=== PATIENT | male | born 1975 | race Two or more races ===

== ENCOUNTER 2017-01-05 16:47 | Inpatient (IN) | payer MEDICAID ==
[~2017-01-05] VITALS: Ht 170.2 cm; Wt 105.7 kg
[2017-01-05 16:55] VITALS: BP 182/147
[2017-01-05] MEDS ORDERED: NORVASC10 MG ORAL (17:09)
[2017-01-05 17:42] VITALS: BP 105/65
[2017-01-05 17:50] LABS: BASOPHILS % (AUTO) 1.5 % (0.0-2.0); EOSINOPHILS % (AUTO) 2.4 % (0.0-3.0); LYMPHOCYTES % (AUTO) 28.6 % (20.0-45.0); MEAN CORPUSCULAR HEMOGLOBIN 28.9 PG (27.0-31.0); MEAN CORPUSCULAR HGB CONC 33.7 G/DL (32.0-36.0); MEAN CORPUSCULAR VOLUME 86 FL (80-99); MEAN PLATELET VOLUME 7.9 FL (6.5-10.1); MONOCYTES % (AUTO) 7.7 % (1.0-10.0); NEUTROPHILS % (AUTO) 59.8 % (45.0-75.0); PLATELET COUNT 218 K/UL (150-450); RED CELL DISTRIBUTION WIDTH 12.1 % (11.6-14.8); WHITE BLOOD COUNT 10.1 K/UL (4.8-10.8)
[2017-01-05 18:00] LABS: TROPONIN I < 0.30 ng/mL (<=0.30)
[2017-01-05 18:04] LABS: ALBUMIN/GLOBULIN RATIO 1.4 (1.0-2.7); CALCIUM 11.4 mg/dL (8.6-10.2); CREATININE 1.4 mg/dL (0.7-1.2); GLOMERULAR FILTRATION RATE 55.6 mL/min (>60); POTASSIUM 3.9 mEQ/L (3.4-4.9); TOTAL PROTEIN 7.7 g/dL (6.6-8.7)
[2017-01-05 18:14] LABS: CKMB 1.7 ng/mL (< 6.7)
[2017-01-05] MEDS ORDERED: cloNIDine 0.2mg Tab ORAL ONE (20:45)
[2017-01-05] MEDS ORDERED: Miralax 17gm pkt ORAL PRN (22:00)
[2017-01-05] MEDS ORDERED: Nitroglycerin Subl 0.4mg tab (Bottle Of 25) SL PRN (22:00)
[2017-01-05] MEDS ORDERED: Carvedilol 6.25mg Tab ORAL ONE (22:00)
[2017-01-05] MEDS ORDERED: DuoNeb 0.5-3(2.5)mg/3ml neb HHN PRN (22:00)
[2017-01-05] MEDS ORDERED: Enalaprilat 2.5mg/2ml Inj IV PRN (22:00)
--- NOTE | 2017-01-05 22:05 | Emergency Room Report ---
History of Present Illness General Chief Complaint: Dyspnea/Respdistress Source: Patient Present Illness HPI Patient is a 39-year-old male who presented after increased difficulty breathing. Patient had gradual onset of symptoms. Patient was sent in by Dr. Trey Austin for further evaluation. The patient reported having some shortness of breath. Patient did have prior history of hypertension no recent been off medications. He had previously been taking Norvasc. The patient gradually worsening shortness of breath for the past few days. Patient noted to have markedly elevated blood pressure in the clinic. He had been having some increased abdominal distention. Allergies: Coded Allergies: No Known Allergies (Unverified , 01/05/17) Patient History Past Medical History: see triage record Reviewed Nursing Documentation: PMH: Agreed, PSxH: Agreed Nursing Documentation-PMH Past Medical History: No History, Except For Hx Hypertension: Yes Review of Systems All Other Systems: negative except mentioned in HPI Physical Exam Vital Signs Date Time Temp Pulse Resp B/P Pulse Ox O2 Delivery O2 Flow Rate FiO2 01/05/17 16:55 97.9 97 18 182/147 95 Room Air Sp02 EP Interpretation: reviewed, normal General Appearance: normal inspection, alert, GCS 15, non-toxic, mild distress Head: atraumatic ENT: normal ENT inspection, hearing grossly normal, normal voice Neck: normal inspection, full range of motion, supple, no bony tend Respiratory: normal inspection, no respiratory distress, no retraction, rales Cardiovascular #1: regular rate, rhythm, no edema Gastrointestinal: normal inspection, normal bowel sounds, non tender, soft, no guarding, no hernia Genitourinary: no CVA tenderness Musculoskeletal: normal inspection, back normal, normal range of motion Neurologic: normal inspection, alert, oriented x3, responsive, security strategist III-XII nml as tested, speech normal Psychiatric: normal inspection, judgement/insight normal, mood/affect normal Skin: normal inspection, normal color, no rash Medical Decision Making Diagnostic Impression: Primary Impression: Accelerated hypertension Additional Impression: Pulmonary edema ER Course Patient presented for shortness of breath. Differential included but was not limited to anemia, pneumonia, pneumothorax, myocardial infarction, pericardial effusion, congestive heart failure, acidosis. Because of complexity of patient' s case laboratory testing and imaging studies were ordered.The patient was given Coreg as well as clonidine for elevated blood pressure. EKG interpreted by me showed sinus tachycardia with rate well without acute ST or T wave changes. Patient was noted to have slight prolonged QT interval.The patient started on supplemental oxygen. Dr Pawel Ruano was contacted for inpatient management Labs Test 01/05/17 17:00 White Blood Count 10.1 K/UL (4.8-10.8) Red Blood Count 5.40 M/UL (4.70-6.10) Hemoglobin 15.6 G/DL (14.2-18.0) Hematocrit 46.2 % (42.0-52.0) Mean Corpuscular Volume 86 FL (80-99) Mean Corpuscular Hemoglobin 28.9 PG (27.0-31.0) Mean Corpuscular Hemoglobin Concent 33.7 G/DL (32.0-36.0) Red Cell Distribution Width 12.1 % (11.6-14.8) Platelet Count 218 K/UL (150-450) Mean Platelet Volume 7.9 FL (6.5-10.1) Neutrophils (%) (Auto) 59.8 % (45.0-75.0) Lymphocytes (%) (Auto) 28.6 % (20.0-45.0) Monocytes (%) (Auto) 7.7 % (1.0-10.0) Eosinophils (%) (Auto) 2.4 % (0.0-3.0) Basophils (%) (Auto) 1.5 % (0.0-2.0) Sodium Level 141 mEQ/L (135-145) Potassium Level 3.9 mEQ/L (3.4-4.9) Chloride Level 102 mEQ/L (98-107) Carbon Dioxide Level 28 mEQ/L (20-30) Anion Gap 11 (5-15) Blood Urea Nitrogen 16 mg/dL (7-23) Creatinine 1.4 mg/dL (0.7-1.2) Estimat Glomerular Filtration Rate 55.6 mL/min (>60) Glucose Level 104 mg/dL (74-106) Calcium Level 11.4 mg/dL (8.6-10.2) Total Bilirubin 0.4 mg/dL (0.0-1.2) Aspartate Amino Transf (AST/SGOT) 21 U/L (5-40) Alanine Aminotransferase (ALT/SGPT) 28 U/L (3-41) Alkaline Phosphatase 101 U/L (40-129) Total Creatine Kinase 183 U/L (38-174) Creatine Kinase MB 1.7 ng/mL (< 6.7) Creatine Kinase MB Relative Index 0.9 Troponin I < 0.30 ng/mL (<=0.30) Total Protein 7.7 g/dL (6.6-8.7) Albumin 4.6 g/dL (3.5-5.2) Globulin 3.1 g/dL Albumin/Globulin Ratio 1.4 (1.0-2.7) EKG Diagnostic Results Rate: normal Rhythm: NSR ST Segments: no acute changes Rhythm Strip Diag. Results EP Interpretation: yes Rhythm: NSR, no PVC's, no ectopy Last Vital Signs Date Time Temp Pulse Resp B/P Pulse Ox O2 Delivery O2 Flow Rate FiO2 01/05/17 20:53 200/137 01/05/17 17:42 98.9 79 19 95 Room Air Status: improved Disposition: ADMITTED INPATIENT Condition: Serious Referrals: NOT CHOSEN IPA/,REFERRING (PCP) Eduin Cook Jan 05, 2017 22:05
[2017-01-06 04:00] VITALS: BP 150/104
[2017-01-06 07:20] LABS: BASOPHILS % (AUTO) 0.9 % (0.0-2.0); EOSINOPHILS % (AUTO) 2.9 % (0.0-3.0); LYMPHOCYTES % (AUTO) 29.1 % (20.0-45.0); MEAN CORPUSCULAR HGB CONC 33.6 G/DL (32.0-36.0); MEAN CORPUSCULAR VOLUME 86 FL (80-99); MEAN PLATELET VOLUME 8.4 FL (6.5-10.1); MONOCYTES % (AUTO) 8.6 % (1.0-10.0); NEUTROPHILS % (AUTO) 58.5 % (45.0-75.0); PLATELET COUNT 207 K/UL (150-450); WHITE BLOOD COUNT 9.2 K/UL (4.8-10.8)
[2017-01-06 07:26] LABS: THYROID STIMULATING HORMONE 1.06 uIU/mL (0.300-4.500)
[2017-01-06 07:28] LABS: CHOLESTEROL/HDL RATIO 8.7 (3.3-4.4); CRP QUANT 0.5 mg/dL (< 0.5)
[2017-01-06 07:31] LABS: TROPONIN I < 0.30 ng/mL (<=0.30)
[2017-01-06 08:10] VITALS: BP 186/143
[2017-01-06 08:25] LABS: PROTHROMBIN TIME 10.3 SEC (9.30-11.50)
[2017-01-06] MEDS ORDERED: Heparin 5000 units/ml inj SUBQ SCH (09:00)
--- NOTE | 2017-01-06 09:36 | Diagnostic Imaging Report ---
Indication: Shortness of breath Technique: Single portable AP view of the chest. Findings: Comparison: None. Cardiac silhouette upper limits of normal in size. Suggestion of mild bronchial wall thickening in perihilar regions. The bones and extra pulmonary soft tissues, remainder of the cardiomediastinal silhouette, pulmonary vasculature, remainder of pulmonary parenchyma, and pleural surfaces are unremarkable. IMPRESSION: Borderline cardiomegaly Mild bilateral bronchial wall thickening, nonspecific, acuity indeterminate. Early congestive change not excludable. Upright PA and lateral chest radiographs with better inspiratory effort and optimal technique recommended for more complete evaluation..
[2017-01-06 09:50] VITALS: BP 148/93
[2017-01-06] MEDS ORDERED: Diltiazem 25mg/5ml IV PRN (11:15)
[2017-01-06 12:00] VITALS: BP 155/112
--- NOTE | 2017-01-06 12:30 | Consultation ---
History of Present Illness General Date patient seen: Jan 06, 2017 Chief Complaint: Dyspnea/Respdistress Reason for Consultation: chest pain Present Illness HPI 39-year-old male who presented after increased difficulty breathing. Patient did have prior history of hypertension no recent been off medications. He had previously been taking Norvasc. The patient gradually worsening shortness of breath for the past few days. Patient noted to have markedly elevated blood pressure in the clinic. Allergies: Coded Allergies: No Known Allergies (Unverified , 01/05/17) Medication History Scheduled Amlodipine Besylate (Norvasc), 10 MG ORAL DAILY, (Reported) Patient History Healthcare decision maker Resuscitation status Full Code Advanced Directive on File No Review of Systems All Other Systems: negative except mentioned in HPI Physical Exam General Appearance: WD/WN Lines, tubes and drains: peripheral HEENT: normocephalic, atraumatic Neck: non-tender, normal alignment, limited range of motion Respiratory/Chest: lungs clear Cardiovascular/Chest: normal peripheral pulses, normal rate Abdomen: normal bowel sounds, non tender Genitourinary/Rectal: normal genital exam Last 24 Hour Vital Signs Date Time Temp Pulse Resp B/P Pulse Ox O2 Delivery O2 Flow Rate FiO2 01/06/17 09:50 82 148/93 Room Air 01/06/17 09:25 163/90 01/06/17 08:24 109 186/143 01/06/17 08:10 96.8 109 20 186/143 95 Room Air 01/06/17 08:00 108 01/06/17 04:00 94 01/06/17 04:00 97.4 87 18 150/104 97 Room Air 01/06/17 00:26 98.9 86 22 164/126 98 Room Air 01/06/17 00:08 80 164/126 01/05/17 20:53 200/137 01/05/17 17:42 98.9 79 19 105/65 95 Room Air 01/05/17 17:00 75 18 Room Air 01/05/17 16:55 97.9 75 18 182/147 95 Room Air 01/05/17 16:55 97.9 97 18 182/147 95 Room Air Intake and Output 01/05/17 01/06/17 19:00 07:00 Intake Total 0 ml Balance 0 ml Intake Oral 0 ml # Voids 1 Laboratory Tests Test 01/05/17 17:00 01/06/17 06:00 White Blood Count 10.1 K/UL (4.8-10.8) 9.2 K/UL (4.8-10.8) Red Blood Count 5.40 M/UL (4.70-6.10) 5.30 M/UL (4.70-6.10) Hemoglobin 15.6 G/DL (14.2-18.0) 15.3 G/DL (14.2-18.0) Hematocrit 46.2 % (42.0-52.0) 45.7 % (42.0-52.0) Mean Corpuscular Volume 86 FL (80-99) 86 FL (80-99) Mean Corpuscular Hemoglobin 28.9 PG (27.0-31.0) 29.0 PG (27.0-31.0) Mean Corpuscular Hemoglobin Concent 33.7 G/DL (32.0-36.0) 33.6 G/DL (32.0-36.0) Red Cell Distribution Width 12.1 % (11.6-14.8) 12.0 % (11.6-14.8) Platelet Count 218 K/UL (150-450) 207 K/UL (150-450) Mean Platelet Volume 7.9 FL (6.5-10.1) 8.4 FL (6.5-10.1) Neutrophils (%) (Auto) 59.8 % (45.0-75.0) 58.5 % (45.0-75.0) Lymphocytes (%) (Auto) 28.6 % (20.0-45.0) 29.1 % (20.0-45.0) Monocytes (%) (Auto) 7.7 % (1.0-10.0) 8.6 % (1.0-10.0) Eosinophils (%) (Auto) 2.4 % (0.0-3.0) 2.9 % (0.0-3.0) Basophils (%) (Auto) 1.5 % (0.0-2.0) 0.9 % (0.0-2.0) Sodium Level 141 mEQ/L (135-145) Potassium Level 3.9 mEQ/L (3.4-4.9) Chloride Level 102 mEQ/L (98-107) Carbon Dioxide Level 28 mEQ/L (20-30) Anion Gap 11 (5-15) Blood Urea Nitrogen 16 mg/dL (7-23) Creatinine 1.4 mg/dL (0.7-1.2) H Estimat Glomerular Filtration Rate 55.6 mL/min (>60) Glucose Level 104 mg/dL (74-106) Calcium Level 11.4 mg/dL (8.6-10.2) H Total Bilirubin 0.4 mg/dL (0.0-1.2) Aspartate Amino Transf (AST/SGOT) 21 U/L (5-40) Alanine Aminotransferase (ALT/SGPT) 28 U/L (3-41) Alkaline Phosphatase 101 U/L (40-129) Total Creatine Kinase 183 U/L (38-174) H Creatine Kinase MB 1.7 ng/mL (< 6.7) Creatine Kinase MB Relative Index 0.9 Troponin I < 0.30 ng/mL (<=0.30) < 0.30 ng/mL (<=0.30) Total Protein 7.7 g/dL (6.6-8.7) Albumin 4.6 g/dL (3.5-5.2) Globulin 3.1 g/dL Albumin/Globulin Ratio 1.4 (1.0-2.7) Prothrombin Time 10.3 SEC (9.30-11.50) Prothromb Time International Ratio 1.0 (0.9-1.1) Activated Partial Thromboplast Time 28 SEC (23-33) C-Reactive Protein, Quantitative 0.5 mg/dL (< 0.5) Triglycerides Level 213 mg/dL (< 150) H Cholesterol Level 218 mg/dL (< 200) H LDL Cholesterol 150 mg/dL (60-99) H HDL Cholesterol 25 mg/dL (> 60) Cholesterol/HDL Ratio 8.7 (3.3-4.4) H Thyroid Stimulating Hormone (TSH) 1.060 uIU/mL (0.300-4.500) Height (Feet): 5 Height (Inches): 7.00 Weight (Pounds): 233 Medications Current Medications Medications (Trade) Dose Ordered Sig/Natalya Route PRN Reason Start Time Stop Time Status Last Admin Dose Admin Acetaminophen (Tylenol) 650 mg Q4H PRN ORAL FEVER 01/05/17 22:00 02/04/17 21:59 Albuterol/ Ipratropium (DuoNeb 0.5-3(2.5)mg/3ml) 3 ml Q4H PRN HHN Shortness of Breath 01/05/17 22:00 01/10/17 21:59 Amlodipine Besylate (Norvasc) 10 mg DAILY ORAL 01/06/17 09:00 02/05/17 08:59 01/06/17 08:24 Diltiazem HCl (Cardizem) 10 mg Q1H PRN IV heart rate more than 120, 01/06/17 11:15 02/05/17 11:14 Enalaprilat (Vasotec) 2.5 mg Q6H PRN IV sbp more than 160 01/05/17 22:00 02/04/17 21:59 01/06/17 09:25 Heparin Sodium (Porcine) (Heparin 5000 units/ml) 5,000 units EVERY 12 HOURS SUBQ 01/06/17 09:00 02/05/17 08:59 01/06/17 08:30 Nitroglycerin (Ntg) 0.4 mg Every 5 Minutes PRN SL Prn Chest Pain 01/05/17 22:00 02/04/17 21:59 Ondansetron HCl (Zofran) 4 mg Q6H PRN IVP Nausea & Vomiting 01/05/17 22:00 02/04/17 21:59 Polyethylene Glycol (Miralax) 17 gm DAILYPRN PRN ORAL Constipation 01/05/17 22:00 02/04/17 21:59 Temazepam (Restoril) 15 mg HSPRN PRN ORAL Insomnia 01/05/17 22:00 01/12/17 21:59 Assessment/Plan Problem List: (1) Noncompliance ICD Codes: Z91.19 - Patient's noncompliance with other medical treatment and regimen SNOMED: 8318684 (2) Accelerated hypertension ICD Codes: I10 - Essential (primary) hypertension SNOMED: 89413978 Assessment/Plan monitor BP norvas, Pablo inhibitors add lasix echo ordered cardiology to see. MARGA MARTE Jan 06, 2017 12:30
--- NOTE | 2017-01-06 12:51 | Cardiology Progress Note ---
Assessment/Plan Assessment/Plan The patient is seen and examined, full consult note will be dictated. Objective Last 24 Hour Vital Signs Date Time Temp Pulse Resp B/P Pulse Ox O2 Delivery O2 Flow Rate FiO2 01/06/17 12:00 97.1 92 20 155/112 96 Room Air 01/06/17 09:50 82 148/93 Room Air 01/06/17 09:25 163/90 01/06/17 08:24 109 186/143 01/06/17 08:10 96.8 109 20 186/143 95 Room Air 01/06/17 08:00 108 01/06/17 04:00 94 01/06/17 04:00 97.4 87 18 150/104 97 Room Air 01/06/17 00:26 98.9 86 22 164/126 98 Room Air 01/06/17 00:08 80 164/126 01/05/17 20:53 200/137 01/05/17 17:42 98.9 79 19 105/65 95 Room Air 01/05/17 17:00 75 18 Room Air 01/05/17 16:55 97.9 75 18 182/147 95 Room Air 01/05/17 16:55 97.9 97 18 182/147 95 Room Air Intake and Output 01/05/17 01/06/17 19:00 07:00 Intake Total 0 ml Balance 0 ml Intake Oral 0 ml # Voids 1 Laboratory Tests Test 01/05/17 17:00 01/06/17 06:00 White Blood Count 10.1 K/UL (4.8-10.8) 9.2 K/UL (4.8-10.8) Red Blood Count 5.40 M/UL (4.70-6.10) 5.30 M/UL (4.70-6.10) Hemoglobin 15.6 G/DL (14.2-18.0) 15.3 G/DL (14.2-18.0) Hematocrit 46.2 % (42.0-52.0) 45.7 % (42.0-52.0) Mean Corpuscular Volume 86 FL (80-99) 86 FL (80-99) Mean Corpuscular Hemoglobin 28.9 PG (27.0-31.0) 29.0 PG (27.0-31.0) Mean Corpuscular Hemoglobin Concent 33.7 G/DL (32.0-36.0) 33.6 G/DL (32.0-36.0) Red Cell Distribution Width 12.1 % (11.6-14.8) 12.0 % (11.6-14.8) Platelet Count 218 K/UL (150-450) 207 K/UL (150-450) Mean Platelet Volume 7.9 FL (6.5-10.1) 8.4 FL (6.5-10.1) Neutrophils (%) (Auto) 59.8 % (45.0-75.0) 58.5 % (45.0-75.0) Lymphocytes (%) (Auto) 28.6 % (20.0-45.0) 29.1 % (20.0-45.0) Monocytes (%) (Auto) 7.7 % (1.0-10.0) 8.6 % (1.0-10.0) Eosinophils (%) (Auto) 2.4 % (0.0-3.0) 2.9 % (0.0-3.0) Basophils (%) (Auto) 1.5 % (0.0-2.0) 0.9 % (0.0-2.0) Sodium Level 141 mEQ/L (135-145) Potassium Level 3.9 mEQ/L (3.4-4.9) Chloride Level 102 mEQ/L (98-107) Carbon Dioxide Level 28 mEQ/L (20-30) Anion Gap 11 (5-15) Blood Urea Nitrogen 16 mg/dL (7-23) Creatinine 1.4 mg/dL (0.7-1.2) H Estimat Glomerular Filtration Rate 55.6 mL/min (>60) Glucose Level 104 mg/dL (74-106) Calcium Level 11.4 mg/dL (8.6-10.2) H Total Bilirubin 0.4 mg/dL (0.0-1.2) Aspartate Amino Transf (AST/SGOT) 21 U/L (5-40) Alanine Aminotransferase (ALT/SGPT) 28 U/L (3-41) Alkaline Phosphatase 101 U/L (40-129) Total Creatine Kinase 183 U/L (38-174) H Creatine Kinase MB 1.7 ng/mL (< 6.7) Creatine Kinase MB Relative Index 0.9 Troponin I < 0.30 ng/mL (<=0.30) < 0.30 ng/mL (<=0.30) Total Protein 7.7 g/dL (6.6-8.7) Albumin 4.6 g/dL (3.5-5.2) Globulin 3.1 g/dL Albumin/Globulin Ratio 1.4 (1.0-2.7) Prothrombin Time 10.3 SEC (9.30-11.50) Prothromb Time International Ratio 1.0 (0.9-1.1) Activated Partial Thromboplast Time 28 SEC (23-33) C-Reactive Protein, Quantitative 0.5 mg/dL (< 0.5) Triglycerides Level 213 mg/dL (< 150) H Cholesterol Level 218 mg/dL (< 200) H LDL Cholesterol 150 mg/dL (60-99) H HDL Cholesterol 25 mg/dL (> 60) Cholesterol/HDL Ratio 8.7 (3.3-4.4) H Thyroid Stimulating Hormone (TSH) 1.060 uIU/mL (0.300-4.500) ANNA DENG Jan 06, 2017 12:50
[2017-01-06] MEDS ORDERED: FUROSEMIDE20 M1 ORAL (15:28)
[2017-01-06 15:57] VITALS: BP 133/86
--- NOTE | 2017-01-06 19:32 | History and Physical Report ---
DATE OF ADMISSION: 01/06/2017 TIME SEEN: 3 p.m. CONSULTANTS: 1. Margoth Blount M.D. 2. Jonah Vidales M.D. CHIEF COMPLAINT: Shortness of breath, hypertension, and CHF. BRIEF HISTORY: This is a 41-year-old male, comes to [facility] with increased shortness of breath. Currently, calm in bed and slightly short of breath. No complaint. PAST MEDICAL HISTORY: Hypertension and CHF. PAST SURGICAL HISTORY: None. MEDICATIONS: Lasix, Cardizem, Norvasc, heparin, DuoNeb, nitroglycerin, Tylenol, MiraLax, Zofran, Restoril, and Vasotec. ALLERGIES: Denied. SOCIAL HISTORY: No smoke, no alcohol, and no intravenous drug abuse. FAMILY HISTORY: Noncontributory. REVIEW OF SYSTEMS: No chest pain. Slightly short of breath. No nausea, vomiting, or diarrhea. PHYSICAL EXAMINATION: GENERAL: Calm in bed, oriented x3, and in no acute distress. VITAL SIGNS: Temperature is 97 degrees, pulse 92, respirations 20, and blood pressure 155/112. CARDIOVASCULAR: No murmur. LUNGS: Poor air exchange. ABDOMEN: Bowel sounds positive. Soft, nontender, and nondistended. EXTREMITIES: No cyanosis, clubbing, or edema. NEUROLOGIC: The patient moves all extremities, but slightly weak. LABORATORY AND DIAGNOSTIC DATA: Lab exam show CBC is normal and creatinine 1.4. with troponin less than 0.3. INR is 1.0. PTT is 28. ASSESSMENT: 1. Shortness of breath. 2. Hypertension. 3. Congestion heart failure. PLAN: 1. Continue premedications. 2. O2 and pulmonary treatment . 3. Dietary follow. 4. CBC and BMP in the morning. 5. Continue to follow this patient. Pawel Ruano D.O. DR: RENUKA JOB#: [id number] CC:
--- NOTE | 2017-01-07 00:52 | Cardiology Report ---
APPROVED REPORT EKG Measurement Heart [id number] Sinus tachycardia Possible Left atrial enlargement Borderline ECG
--- NOTE | 2017-01-07 02:31 | Consultation ---
DATE OF CONSULTATION: 01/06/2017 CARDIOLOGY CONSULTATION REFERRING PHYSICIAN: Pawel Ruano D.O. REASON FOR CONSULTATION: Management of dyspnea. HISTORY OF PRESENT ILLNESS: The patient is a very pleasant 41-year-old gentleman, who presents to the hospital with increased difficulty breathing. The symptoms started in the past few days as gradual onset. The patient was sent by Dr. Austin for further evaluation and management. The patient states that he has history of hypertension and he has been off medications recently. Previously, he was taking Norvasc for control of blood pressure. He has felt more shortness of breath with activities in the past few days. In the clinic, his blood pressure was significantly elevated. He was advised to come to the hospital for further evaluation and management. On arrival to the hospital, initial blood pressure was 182/147 mmHg. His 12-lead electrocardiogram was sinus rhythm with no ST and T-wave abnormalities. He was admitted to telemetry for further evaluation and assessment. Dr. Ruano made a request for Cardiology consultation. His risk factor for coronary artery disease includes hypertension. PAST MEDICAL HISTORY: Hypertension. PAST SURGICAL HISTORY: None. MEDICATIONS: List of medications include none. The patient was taking Norvasc 10 mg p.o. daily and Lasix 20 mg p.o. daily in the past. ALLERGIES: No known drug allergies. SOCIAL HISTORY: He lives at home. Denying any tobacco, alcohol, or illicit drug use. FAMILY HISTORY: No premature coronary artery disease or . REVIEW OF SYSTEMS: Twelve system review was done and essentially negative except what mentioned in the history of present illness. PHYSICAL EXAMINATION: VITAL SIGNS: Blood pressure was 182/147, pulse of 97, respirations of 18, temperature 97.9 degrees Fahrenheit, and O2 saturation of 95% on room air. GENERAL: The patient is a very pleasant 41-year-old gentleman, in no apparent respiratory distress. Alert and oriented x4. HEENT: Atraumatic and normocephalic. ENT, pupils are equal, round, and reactive to light and accommodation. Extraocular muscles intact. NECK: JVP less than 5 cm. No carotid bruits. Carotid upstroke is 2+ bilaterally. CARDIOVASCULAR: Normal S1 and S2. Regular rate and rhythm. No murmurs, gallops, or rubs. PMI is at fourth intercostal space at the midclavicular line. LUNGS: Clear to auscultation bilaterally. ABDOMEN: Soft, nontender, and nondistended. No hepatosplenomegaly. Positive bowel sounds. EXTREMITIES: No evidence of edema, clubbing, or cyanosis. LABORATORY AND DIAGNOSTIC DATA: Laboratory Findings: WBC was 10.1, hemoglobin 15.6, hematocrit 46.2, and platelet count 280,000. Chemistry shows sodium of 141, potassium is 3.9, chloride 102, bicarbonate 28, BUN 16, creatinine 1.4, glucose is 104, and calcium is 11.4. Troponin I less than 0.3 x2. Triglycerides 213, cholesterol 218, LDL is 150, and HDL of 25. INR is 1.0. Chest x-ray showed borderline cardiomegaly, mild bilateral bronchial wall thickening, and early congestive changes not excludable. A 2D echocardiography showed borderline left ventricular systolic function with LVEF of approximately 50%. There was restrictive LV physiology consistent with severely elevated intracardiac filling pressure. There was a moderate LVH and moderate mitral regurgitation, right ventricular systolic pressure measured at 12 mmHg. ASSESSMENT AND PLAN: The patient is a very pleasant 41-year-old gentleman, who was seen in Cardiology consultation at the request of Dr. Ruano. 1. Acute diastolic heart failure. I agree with Lasix started by Dr. Blount. We will continue with managing the hypertension with Norvasc 10 mg daily as the patient was on it in the past. We will continue to monitor the patient's complaints and subjective shortness of breath. 2. Hypertensive heart disease. Again, Norvasc and Lasix will be continued. The patient requires to be followed up at an outpatient clinic for blood pressure adherence. Salt restriction and exercise and diet has been emphasized as well. 3. Moderate mitral regurgitation, likely due to hypertensive heart disease. I would like to thank, Dr. Ruano, for allowing me to participate in the care of this patient. Jonah Blackwell M.D. DR: Ridge JOB#: [id number] CC:
--- NOTE | 2017-01-07 11:15 | Cardiology Report ---
APPROVED REPORT EXAM: Two-dimensional and M-mode echocardiogram with Doppler and color Doppler. INDICATION LV function M-Mode DIMENSIONS IVSd1.7 (0.7-1.1cm)Left Atrium (MM)3.9 (1.6-4.0cm) LVDd5.0 (3.5-5.6cm)Aortic Root3.5 (2.0-3.7cm) PWd2.1 (0.7-1.1cm)Aortic Cusp Exc.1.6 (1.5-2.0cm) LVDs3.9 (2.5-4.0cm) PWs2.7 cm Normal left ventricular chamber size, mildly depressed systolic function with global hypokinesis. Left ventricular ejection fraction estimated to be 50 %. Moderate left ventricular hypertrophy. Anterior Echo-free space, may be due to pericardial fat or effusion. Mild left atrial enlargement. Right cardiac chamber sizes are within normal limits. Mild focal aortic valve sclerosis with adequate cusp excursion. Mildly thickened mitral valve leaflets with normal excursion. Mitral annulus and aortic root calcification. Normal pulmonic valve structure. Normal tricuspid valve structure. IVC at normal size with physiologic collapse. A color flow and spectral Doppler study was performed and revealed: Moderate mitral regurgitation. Mitral inflow indicates normal left ventricular diastolic function. Trace tricuspid regurgitation. Tricuspid systolic velocities suggests peak right ventricular systolic pressure of 12 mmHg.
--- NOTE | 2017-01-07 14:18 | Discharge Summary ---
Discharge Summary Hospital Course Date of Admission Jan 05, 2017 at 21:44 Date of Discharge Jan 06, 2017 at 17:00 Admitting Diagnosis hypertensive crisis HPI Lb Valverde is a 41 year old male who was admitted on Jan 05, 2017 at 21:44 for Hypertensive Crisis Hospital Course [id number] Discharge Discharge Disposition Patient was discharged to Home (01) Discharge Diagnoses: Bailey Self NP Jan 07, 2017 14:18
--- NOTE | 2017-01-07 14:18 | Discharge Summary ---
Discharge Summary Hospital Course Date of Admission Jan 05, 2017 at 21:44 Date of Discharge Jan 06, 2017 at 17:00 Admitting Diagnosis hypertensive crisis HPI Lb Valverde is a 41 year old male who was admitted on Jan 05, 2017 at 21:44 for Hypertensive Crisis Hospital Course [id number] Discharge Discharge Disposition Patient was discharged to Home (01) Discharge Diagnoses: Bailey Self NP Jan 07, 2017 14:18
--- NOTE | 2017-01-07 22:15 | Discharge Summary 2 SIG ---
DATE OF ADMISSION: 01/05/2017 DATE OF DISCHARGE: 01/06/2017 CONSULTANTS: 1. Margoth Blount M.D. 2. Jonah Blackwell M.D. BRIEF HOSPITAL COURSE: The patient is a 41-year-old male, who presented to ED after difficulty breathing. The patient was sent in by his primary care physician Dr. Austin for further evaluation as he was also noted to have elevated blood pressure. He has a prior history of hypertension and has been off medications. On arrival to ED, blood pressure was elevated to 182/147. EKG showed sinus tachycardia without acute ST to T-wave changes. He was noted to have slight prolonged QT interval. He was given O2 supplementation. The patient has a risk factor for coronary artery disease and the patient was then admitted to telemetry for evaluation of accelerated hypertension. He was seen by Dr. Blackwell and was resumed on his normal medications Norvasc and Lasix. Echocardiogram done showed ejection fraction of 50%. Following then, there was improvement in blood pressure readings and the patient was stable. The patient was then discharged home. Advised to follow up with PCP. FINAL DIAGNOSES: 1. Accelerated hypertension. 2. Acute diastolic congestive heart failure. 3. Noncompliance with medications. DISPOSITION: The patient was discharged home. Follow up with PCP in a week. ACTIVITY: Activity as tolerated. Pawel Ruano D.O. I have been assigned to dictate discharge summary on this account and I was not involved in the patient's management. Bailey Self N.P. DR: MRAIE JOB#: [id number] CC: RHINA
== END 2017-01-06 17:00 | disposition home or self-care (01) | DRG 194 ==
LOC: EMR 21:26 → 2E 21:44 → EDBEDREQ 22:12
DX: I11.0 Hypertensive heart disease with heart failure (principal); I34.0 Nonrheumatic mitral (valve) insufficiency; Z91.19 Patient's noncompliance with other medical treatment and regimen; I50.31 Acute diastolic (congestive) heart failure
CPT/HCPCS: 36415; 71010; 80053; 80061; 82550; 82553; 84443; 84484; 85025; 85610; 85730; 86140; 93005; 93306